=== PATIENT | male | born 1970 | race Two or more races ===

== ENCOUNTER → 2017-12-25 | Outpatient (CLI) | payer OTHER ==
[~2017-12-25] VITALS: Ht 152.4 cm; Wt 8854.1 kg
== END | disposition home or self-care (01) ==
LOC: PPHC 10:04
DX: M79.1 Myalgia (principal); R10.84 Generalized abdominal pain

== ENCOUNTER → 2017-12-28 | Outpatient (CLI) | payer OTHER ==
[~2017-12-28] VITALS: Ht 152.4 cm; Wt 94.3 kg
== END | disposition home or self-care (01) ==
LOC: PPHC 10:09
DX: Z01.89 Encounter for other specified special examinations (principal)

== ENCOUNTER → 2018-08-16 | Outpatient (CLI) | payer OTHER | END | disposition home or self-care (01) | LOC: RAD 11:40 | DX: M54.2 Cervicalgia (principal) ==